=== PATIENT | male | born 1940 | race Two or more races ===

== ENCOUNTER 2017-07-04 21:13 | Emergency (ER) | payer MEDICARE, OTHER ==
[~2017-07-04] VITALS: Ht 175.3 cm; Wt 81.6 kg
[2017-07-04 21:30] VITALS: BP 160/80
[2017-07-04] MEDS ORDERED: IBUPROFEN600 MG ORAL (21:44)
[2017-07-04] MEDS ORDERED: POLYTRIM OP SOL10 ML OPHTHALM (21:44)
--- NOTE | 2017-07-04 21:44 | Emergency Room Report ---
History of Present Illness General Chief Complaint: Earache Source: Patient Present Illness HPI Is a 76-year-old male who presents with chief complaint of left ear pain. The onset for last 2 weeks but worse the last 4 days. Throbbing in nature. 2 weeks ago he try to get some wax out of his ear. Since then his been hurting. No bleeding. No fever chills but no cough or congestion. Pain is 8/10. Nothing made it better. Nothing made it worse. Allergies: Coded Allergies: No Known Allergies (Unverified , 07/04/17) Patient History Past Medical History: see triage record, old chart reviewed Past Surgical History: other Pertinent Family History: none Social History: Denies: smoking Immunizations: other Reviewed Nursing Documentation: PMH: Agreed, PSxH: Agreed Nursing Documentation-PMH Past Medical History: No History, Except For Hx Hypertension: Yes Review of Systems Eye: Denies: eye pain, blurred vision ENT: Reports: ear pain, Denies: nose congestion, throat swelling Respiratory: Denies: cough, shortness of breath Cardiovascular: Denies: chest pain, palpitations Gastrointestinal: Denies: abdominal pain, diarrhea, nausea, vomiting Musculoskeletal: Denies: back pain, joint pain Skin: Denies: rash Neurological: Denies: headache, numbness Endocrine: Denies: increased thirst, increased urine Hematologic/Lymphatic: Denies: easy bruising All Other Systems: negative except mentioned in HPI Physical Exam Vital Signs Date Time Temp Pulse Resp B/P (MAP) Pulse Ox O2 Delivery O2 Flow Rate FiO2 07/04/17 21:21 98.4 65 16 160/80 99 Room Air vitals normal except for high blood pressure Sp02 EP Interpretation: reviewed, normal General Appearance: well appearing, no apparent distress, alert Head: normocephalic, atraumatic Eyes: bilateral eye PERRL, bilateral eye EOMI ENT: hearing grossly normal, normal pharynx, other - Left ear: There is edema to the externa canal. Pain elicited with movement of the ear. Neck: full range of motion, supple, no meningismus Respiratory: chest non-tender, lungs clear, normal breath sounds Cardiovascular #1: regular rate, rhythm, no murmur Gastrointestinal: normal bowel sounds, non tender, no mass, no organomegaly, no bruit, non-distended Musculoskeletal: back normal, gait/station normal, normal range of motion Psychiatric: mood/affect normal Skin: warm/dry Medical Decision Making Diagnostic Impression: Primary Impression: Otitis externa of left ear Qualified Codes: H60.502 - Unspecified acute noninfective otitis externa, left ear ER Course Patient with otitis externa of the left ear. No foreign body. No perforation. No abscess. No mastoiditis. We'll discharge home. Last Vital Signs Date Time Temp Pulse Resp B/P (MAP) Pulse Ox O2 Delivery O2 Flow Rate FiO2 07/04/17 21:21 98.4 65 16 160/80 99 Room Air Status: improved Disposition: HOME, SELF-CARE Condition: Stable Scripts Polymyxin/Trimethoprim (Polytrim Eye Drops) 10 Ml Drops 2 DROP OPHTHALM THREE TIMES A DAY, #1 EA Instill in affected eye for 7 days Prov: KIM NEWTON M.D. 07/04/17 Ibuprofen* (MOTRIN*) 600 Mg Tablet 600 MG ORAL Q8H Y for For Pain, #30 TAB 0 Refills Prov: KIM NEWTON M.D. 07/04/17 Patient Instructions: Otitis Externa, [id number] Additional Instructions: Followup with your DrKristian in 7 days for recheck. Return if worse. KIM NEWTON M.D. Jul 04, 2017 21:44
[2017-07-04] MEDS ORDERED: Tylenol #3 tab (300mg/30mg) ORAL ONE (21:45)
[2017-07-04 21:55] VITALS: BP 160/80
== END 2017-07-04 21:55 | disposition home or self-care (01) ==
LOC: EMR 21:37
DX: H60.92 Unspecified otitis externa, left ear (principal)
CPT/HCPCS: 99284